=== PATIENT | male | born 1955 | race American Indian/Alaskan Native ===

== ENCOUNTER 2016-11-19 15:07 | Emergency (ER) | payer BC, OTHER ==
[2016-11-19 15:44] VITALS: BP 143/80
[2016-11-19 16:48] LABS: CHLORIDE,CL 99 mmol/L (101-111); SODIUM,NA 132 mmol/L (135-145)
[2016-11-19] MEDS ORDERED: Sodium Chloride 0.9% 10 ML Syringe FLUSH PRN (16:56)
--- NOTE | 2016-11-19 17:01 | CR ---
Clinical history: 61-year-old febrile male with a cough (left hip abscess) and white blood cell count 13,000. Interpretation: PA,lateral chest x-ray (no comparisons) reveals asymmetric infiltrative masslike full ness of the right hilum with elevation of the ipsilateral right hemidiaphragm. Smoker? Normal cardiac silhouette without cephalization of flow, signs of alveolar edema or dependent pleural effusion. No other peripheral lung nodule or mass lesion, lobar consolidation or atelectasis/collapse. No pneum othorax. CONCLUSION: Suspicious appearance right hilum with elevation ipsilateral hemidiaphragm. Suggest CT wi th contrast.
[2016-11-19] MEDS ORDERED: Iopamidol 612 MG/ML 100 ML Bottle IVPUSH ONE (17:08)
--- NOTE | 2016-11-20 11:51 | EDM.PDOC ---
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 Patient had left total hip replacement in 2013, subsequent wound infection which failed ferry terminal agent antibiotic therapy. He recently completed another [facility] outpatient antibiotic course approximately one week ago. Since the discontinuation of the antibiotic the hip has become painful and feels hot on the inside per patient. Patient states that he has been able to see his orthopedist because he needs a new referral from [place]. Location: Reports: Lower Extremity, Left Quality: Reports: Ache Severity: Severe Improves with: Reports: None Worsens with: Reports: None Associated Symptoms: Reports: No Other Symptoms Left Hip Pain Score (Numeric/FACES): 10 - Related Data Allergies Allergy/AdvReac Type Severity Reaction Status Date / Time No Known Allergies Allergy Verified 10/31/15 22:06 Home Meds: Home Meds Aspirin [Halfprin] 81 mg PO DAILY 03/17/14 [History] Famotidine [Pepcid] 20 mg PO DAILY 03/17/14 [History] Hydrochlorothiazide 25 mg PO DAILY 03/17/14 [History] Lisinopril 20 mg PO DAILY 03/17/14 [History] Iron 0 mg PO DAILY 10/31/15 [History] Multivitamin [Multivitamins] 1 each PO DAILY 10/31/15 [History] Past Medical History HEENT History: Reports: None Cardiovascular History: Reports: High Cholesterol, Hypertension Respiratory History: Reports: None Gastrointestinal History: Reports: None Other Genitourinary History: Hx of renal insufficncy Other Musculoskeletal History: leg fracture as a child, left hip replaced in 2013 Neurological History: Reports: None Psychiatric History: Reports: None Endocrine/Metabolic History: Reports: Diabetes, Type II Hematologic History: Reports: None Immunologic History: Reports: None Oncologic (Cancer) History: Reports: None Dermatologic History: Reports: None Social & Family History - Family History Family Medical History: Noncontributory - Tobacco Use Smoking Status *Q: Current Every Day Smoker Years of Tobacco use: 45 Packs/Tins Daily: 1.5 Used Tobacco, but Quit: No Second Hand Smoke Exposure: Yes - Alcohol Use Days Per Week of Alcohol Use: 1 Number of Drinks Per Day: 6 Total Drinks Per Week: 6 - Recreational Drug Use Recreational Drug Use: Yes Drug Use in Last 12 Months: Yes Recreational Drug Type: Reports: Marijuana/Hashish Recreational Drug Use Frequency: Rarely - Living Situation & Occupation Living situation: Reports: with Significant Other Occupation: Employed ED ROS GENERAL - Review of Systems Review Of Systems: ROS reveals no pertinent complaints other than HPI. ED EXAM, GENERAL - Physical Exam Exam: See Below Exam Limited By: No Limitations General Appearance: Alert, WD/WN, No Apparent Distress, Obese Eye Exam: Bilateral Eye: Normal Inspection Ears: Normal External Exam, Normal Canal, Hearing Grossly Normal, Normal TMs Nose: Normal Inspection, Normal Mucosa, No Blood Throat/Mouth: Normal Inspection, Normal Lips, Normal Teeth, Normal Gums, Normal Oropharynx, Normal Voice, No Airway Compromise Head: Atraumatic, Normocephalic Neck: Normal Inspection, Supple, Non-Tender, Full Range of Motion Respiratory/Chest: Other (dry cough, crackles. ) Cardiovascular: Normal Peripheral Pulses GI/Abdominal: Other (obese) (Male) Exam: Deferred Rectal (Males) Exam: Deferred Back Exam: Normal Inspection, Full Range of Motion, NT Extremities: Other (Left hip with copious purulent drainage (yellowish) from THR scar. ) Neurological: Alert, Oriented, CN II-XII Intact, Normal Cognition, Normal Gait, Normal Reflexes, No Motor/Sensory Deficits Psychiatric: Normal Affect, Normal Mood Skin Exam: Warm, Dry, Intact, Normal Color, No Rash Lymphatic: No Adenopathy Course - Vital Signs Last Recorded V/S: Last Vital Signs Temp 37.5 C 11/19/16 15:43 Pulse 95 11/19/16 15:43 Resp 16 11/19/16 15:43 BP 143/80 H 11/19/16 15:43 Pulse Ox 94 L 11/19/16 15:43 - Orders/Labs/Meds Orders: Active Orders 24 hr Category Date Time Status Peripheral IV Care [RC] . DIRECTED Care 11/19/16 16:57 Active CULTURE WOUND [RM] Stat Lab 11/19/16 16:04 Received Peripheral IV Insertion Adult [OM.PC] Stat Oth 11/19/16 16:55 Ordered Labs: Laboratory Tests 11/19/16 11/19/16 11/19/16 Range/Units 16:21 16:21 16:21 WBC 13.6 H (5.0-10.0) 10^3/uL RBC 4.73 (4.6-6.2) 10^6/uL Hgb 14.6 (14.0-18.0) g/dL Hct 43.7 (40.0-54.0) % MCV 92.4 (80-100) fL MCH 30.9 (27.0-34.0) pg MCHC 33.4 (33.0-35.0) g/dL Plt Count 272 (150-450) 10^3/uL Neut % (Auto) 80.5 H (42.2-75.2) % Lymph % (Auto) 9.3 L (20.5-50.1) % Butts % (Auto) 9.3 H (2-8) % Eos % (Auto) 0.7 L (1.0-3.0) % Baso % (Auto) 0.2 (0.0-1.0) % Sodium 132 L (135-145) mmol/L Potassium 4.2 (3.6-5.0) mmol/L Chloride 99 L (101-111) mmol/L Carbon Dioxide 21.0 (21.0-31.0) mmol/L Anion Gap 16.2 BUN 16 (7-18) mg/dL Creatinine 0.9 (0.6-1.3) mg/dL Est Cr Clr Drug Dosing 154.84 mL/min Estimated GFR (MDRD) > 60 BUN/Creatinine Ratio 17.77 Glucose 125 H (74-105) mg/dL Calcium 8.5 (8.4-10.2) mg/dl Total Bilirubin 1.5 H (0.2-1.0) mg/dL AST 19 (10-42) IU/L ALT 21 (10-60) IU/L Alkaline Phosphatase 133 H (42-121) IU/L C-Reactive Protein 16.8 H (0.0-1.3) mg/dL Total Protein 8.6 H (6.7-8.2) g/dl Albumin 3.2 (3.2-5.5) g/dl Globulin 5.4 Albumin/Globulin Ratio 0.59 Rapid strep: Negative. Meds: Medications Discontinued Medications Generic Name Dose Route Start Last Admin Trade Name Kirstin PRN Reason Stop Dose Admin Iopamidol 100 ml 11/19/16 17:08 11/19/16 17:17 Isovue-300 (61%) IVPUSH 11/19/16 17:09 100 ml ONETIME ONE Administration Sodium Chloride 10 ml 11/19/16 16:56 Saline Flush FLUSH ASDIRECTED PRN Keep Vein Open - Radiology Interpretation Free Text/Narrative:: Chest x-ray: Suspicious appearance right hilum with elevation ipsilateral hemidiaphragm. See rad report. CT left lower extremity: Fluid collection extends from the lateral aspect of the left hip to the surface of the skin. It measures 12.3 x 3.7 x 5.7cm. The collection has an enhancing wall and there are surrounding inflammatory changes. Findings consistent with infection/abscess. See rad report. CT chest: No acute findings. See rad report. Departure - Departure Time of Disposition: 18:45 Disposition: Home, Self-Care 01 Condition: Fair Clinical Impression: Viral URI with cough Infected prosthesis of left hip Qualifiers: Encounter type: initial encounter Qualified Code(s): T84.52XA - Infection and inflammatory reaction due to internal left hip prosthesis, initial encounter - Discharge Information Instructions: Abscess, [id number], Upper Respiratory Infection, Adult, Easy- to-Read Referrals: Santiago Hernandez [Primary Care Provider] - Forms: ED Department Discharge Additional Instructions: Call [facility] tomorrow at 8 am. Do not eat or drink after midnight due to possibility of surgery tomorrow. Sent home with 4 tablets of Vicodin 10mg/325mg. *Do not drive while under the influence of this medication. - My Orders Last 24 Hours: My Active Orders 11/19/16 16:04 CULTURE WOUND [RM] Stat 11/19/16 16:55 Peripheral IV Insertion Adult [OM.PC] Stat 11/19/16 16:57 Peripheral IV Care [RC] . DIRECTED - Assessment/Plan Last 24 Hours: My Active Orders 11/19/16 16:04 CULTURE WOUND [RM] Stat 11/19/16 16:55 Peripheral IV Insertion Adult [OM.PC] Stat 11/19/16 16:57 Peripheral IV Care [RC] . DIRECTED I have read and agree with the documentation that has been completed regarding this visit. By signing this record, I attest that the documentation was completed in my physical presence and is an accurate record of the encounter.
== END 2016-11-19 19:00 | disposition home or self-care (01) ==
LOC: DL.ED 15:07
DX: J06.9 Acute upper respiratory infection, unspecified (principal); T84.52XA Infection and inflammatory reaction due to internal left hip prosthesis, initial encounter; E78.00 Pure hypercholesterolemia, unspecified; I10 Essential (primary) hypertension; E11.9 Type 2 diabetes mellitus without complications; F17.210 Nicotine dependence, cigarettes, uncomplicated; Z79.82 Long term (current) use of aspirin
CPT/HCPCS: 36415; 71020; 71260; 73701; 80053; 85025; 86140; 87070; 87081; 87430; 99284; Q9967; 87077; 87186